=== PATIENT | male | born 1965 | race Caucasian/White ===

== ENCOUNTER 2021-10-29 17:17 | Emergency (ER) | payer OTHER, SELFPAY ==
[2021-10-29 17:29] VITALS: BP 123/75; PULSE 87; RESP 17; TEMP 36.4; O2SAT 96
--- NOTE | 2021-10-29 18:33 | ED.EAR ---
HPI - Ear Problem General Chief complaint: Ear Stated complaint: Ear Problem Time Seen by Provider: 10/29/21 18:33 Source: patient, RN notes reviewed and old records reviewed Mode of arrival: ambulatory Limitations: no limitations History of Present Illness HPI Narrative: 56-year-old male who presents to [facility] with complaints of pain to the bilateral ears with decreased hearing to the right ear for several weeks. Patient states that he has noticed some popping to his ears like when in high elevations, Patient repots that he put some peroxide in his ears and that seemed to make it worse, Patient denies any feverss chills or sweats, no sore throat or any nasal congestion or discharge. MD Complaint: ear pain Location: right ear Duration: intermittent Discharge from ear: Reports no Associated symptoms ear: decreased hearing Treatment prior to arrival: other (Peroxide) Related Data Home Medications Medication Instructions Recorded Confirmed No Home Medications 10/29/21 10/29/21 Allergies Allergy/AdvReac Type Severity Reaction Status Date / Time No Known Allergies Allergy Verified 10/29/21 17:33 Review of Systems Review of Systems: CONSTITUTIONAL: Denies fever, chills, or sweats. EYES: Denies visual changes,no redness and no discharge from eyes. ENT: Denies rhinorrhea, congestion, sore throat positive for otalgia, decreased hearing from right ear CARDIOVASCULAR: Denies chest pain, palpitations, or edema. RESPIRATORY: Denies cough or dyspnea. GASTROINTESTINAL: Denies abdominal pain, nausea, vomiting, or diarrhea. GENITOURINARY: Denies dysuria or hematuria. SKIN:Positive for rash or itching. MUSCULOSKELETAL: Denies back pain, joint pain, or myalgia. NEUROLOGIC: Denies headache, numbness, or weakness. PSYCHIATRIC: Denies anxiety or depression. All systems reviewed & are unremarkable except as noted in HPI and below [facility] Social History Social History (Updated 10/30/21 @ 14:36 by Kate Peterson NP) Smoking packs per day: 1 Smoking cigarettes per day: 20.0 Years smoked: 40 Smoking pack-years: 40.00 Smoking status: Current every day smoker Alcohol intake: unknown Substance use type: does not use Living arrangements: with family Gender identity (if verbalized by the patient): Male Comments At time of signature, agree with nursing past medical, surgical, social and family history. There is no relevant family history pertinent to the presenting complaint Exam Narrative: GENERAL: Well-appearing, well-nourished, and in no acute distress. HEAD: Normocephalic, atraumatic. EYES: PERRLA and EOMI. ENT: Nares clear, no rhinorrhea or epistaxis. Mucous membranes moist.RightTM completely covered by cerumen, after removal TM normal with good light reflex and hearing improved. Left TM normal with good light reflex, throat normal with no lesions exudates or tonsil swelling. NECK: Supple.no lymphadenopathy CHEST: Clear decreased breath sounds on auscultation. No respiratory distress.SAO2 96% on room air HEART: Regular rate and rhythm. No murmur heard. Normal peripheral pulses. ABDOMEN: Soft, nontender, nondistended, normal active bowel sounds. EXTREMITIES: Normal range of motion. No edema. SKIN: Warm, dry, no rash. NEURO: No focal deficits. Alert and oriented x3. Course Course Level of Care: Express Care Visit Vital Signs Vital signs: Vital Signs Temperature 36.4 C 10/29/21 17:29 Pulse Rate 87 10/29/21 17:29 Respiratory Rate 17 10/29/21 17:29 Blood Pressure 123/75 10/29/21 17:29 Pulse Oximetry 96 10/29/21 17:29 Temperature 36.4 C 10/29/21 17:29 Pulse Rate 87 10/29/21 17:29 Respiratory Rate 17 10/29/21 17:29 Blood Pressure 123/75 10/29/21 17:29 Pulse Oximetry 96 10/29/21 17:29 Procedures Ear Wax Removal Right Ear: Ear Wax Removal Date: 10/29/21 Ear Wax Removal Time: 18:38 Cerumenolytic Used: 5-10% Sodium Bicarb solution Results: Re-
== END 2021-10-29 19:02 | disposition home or self-care (01) ==
PROVIDERS: Emergency Provider Registered Nurse
DX: H61.21 Impacted cerumen, right ear (principal); F17.210 Nicotine dependence, cigarettes, uncomplicated
CPT/HCPCS: 69210; 99212; G0463